=== PATIENT | male | born 2005 | race American Indian/Alaskan Native ===

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

== ENCOUNTER 2024-04-23 04:07 | Emergency (ER) | payer OTHER ==
[~2024-04-23] VITALS: Ht 162.6 cm; Wt 68.0 kg
[2024-04-23] MEDS ORDERED: Acetaminophen 325 MG TABLET PO ONE (04:35)
[2024-04-23 05:23] LABS: Source, Urine Clean Catch
[2024-04-23 05:31] LABS: Appearance, Urine Hazy (Clear); Bilirubin, Urine Neg (Neg); Blood, Urine Neg (Neg); Color, Urine Yellow (P-Yellow); Glucose Qualitative, Urine Neg (Neg); Ketones, Urine Neg (Neg); Leukocyte Esterase, Urine Neg (Neg); Nitrite, Urine Neg (Neg); Protein, Urine Neg (Neg); Urobilinogen, Urine NORM (Normal); pH, Urine 6.5 (5.0-8.0)
[2024-04-23 05:39] LABS: Red Blood Cells, Urine Not Seen /hpf (0-2); White Blood Cells, Urine Not Seen /hpf (0-5)
[2024-04-23 05:40] LABS: Amorphous Heavy (0-Heavy); Bacteria Rare /hpf; Squamous Epithelial Cells Rare /hpf (Few)
[2024-04-23] MEDS ORDERED: Ondansetron 4 MG SoluTab SL ONE (06:05)
[2024-04-23 06:09] LABS: Influenza A, PCR NEGATIVE (NEGATIVE); Influenza B, PCR NEGATIVE (NEGATIVE); Resp Syncytial Virus, PCR NEGATIVE (NEGATIVE); SARS-Cov-2 (COVID-19) PCR, MMC NEGATIVE (NEGATIVE)
[2024-04-23 06:30] VITALS: BP 15/75
[2024-04-23 07:02] LABS: Chlamydia Trachomatis Urine NOT DETECTED (NOT DETECT); Neisseria Gonorrhoea Urine NOT DETECTED (NOT DETECT)
[2024-04-23] MEDS ORDERED: HYDHCL25 PO (20:45)
== END 2024-04-23 06:35 | disposition home or self-care (01) ==
LOC: ER 04:07
PROVIDERS: Physician Assistant
DX: B34.9 Viral infection, unspecified (principal); Z87.891 Personal history of nicotine dependence
CPT/HCPCS: 0241U; 71046; 81001; 87491; 87591; 99285-25; A9270

== ENCOUNTER 2024-04-23 20:12 | Emergency (ER) | payer OTHER ==
[~2024-04-23] VITALS: Ht 185.4 cm; Wt 68.0 kg
[2024-04-23 20:38] VITALS: BP 123/74
[2024-04-23] MEDS ORDERED: HYDHCL25 PO (20:45)
== END 2024-04-23 20:46 | disposition home or self-care (01) ==
LOC: ER 20:12
DX: F41.9 Anxiety disorder, unspecified (principal); R07.89 Other chest pain; Z87.891 Personal history of nicotine dependence
CPT/HCPCS: 93005; 93010; 99283-25

== ENCOUNTER 2024-05-21 06:40 | Emergency (ER) | payer OTHER ==
[~2024-05-21] VITALS: Ht 175.3 cm; Wt 65.8 kg
[~2024-05-21 06:40] MED LIST changes: +HYDHCL25 PO
[2024-05-21 07:45] LABS: BASOPHILS ABSOLUTE AUTO 0.04 K/mm3 (0.00-0.23); BASOPHILS PERCENT AUTO 1 % (0-2); EOSINOPHILS ABSOLUTE AUTO 0.33 K/mm3 (0.00-0.68); EOSINOPHILS PERCENT AUTO 4 % (0-6); Hematocrit 45.1 % (37.0-53.0); Hemoglobin 15.4 g/dL (13.5-17.5); IMMATURE GRAN ABSOLUTE AUTO 0.02 K/mm3 (0.00-0.10); IMMATURE GRAN PERCENT AUTO 0 % (0-1); LYMPHOCYTES ABSOLUTE AUTO 2.92 K/mm3 (0.84-5.20); LYMPHOCYTES PERCENT AUTO 33 % (21-46); MONOCYTES ABSOLUTE AUTO 0.95 K/mm3 (0.16-1.47); MONOCYTES PERCENT AUTO 11 % (4-13); Mean Corpuscular HGB Conc 34.1 g/dL (31.5-36.5); Mean Corpuscular Volume 94 fL (80-100); Mean Platelet Volume 10.4 fL (9.1-12.4); NEUTROPHILS ABSOLUTE AUTO 4.56 K/mm3 (1.96-9.15); NEUTROPHILS PERCENT AUTO 52 % (41-73); Platelet Count 285 K/mm3 (150-400); RDW Coefficient Variation 12.2 % (11.7-14.2); RDW Standard Deviation 42.5 fL (35.1-46.3); Red Blood Cell Count 4.81 M/mm3 (4.30-5.90); White Blood Cell Count 8.82 K/mm3 (4.00-11.30)
[2024-05-21] MEDS ORDERED: Ondansetron HCl 2 MG / ML 2ML Vial IV ONE (07:45)
[2024-05-21] MEDS ORDERED: Mag Hydrox/AL Hydrox/Simeth 30 ML UDC PO ONE (07:45)
[2024-05-21] MEDS ORDERED: NS 1,000 ML IV SCH (07:45)
[2024-05-21] MEDS ORDERED: Famotidine 10 MG/ML 2ML Vial IV ONE (07:45)
[2024-05-21 08:04] LABS: Albumin/Globulin Ratio 1.2 (0.8-1.8); Bilirubin, Total 1.1 mg/dL (0.1-1.0); Bun/Creatinine Ratio 17.5 (12.0-20.0); Calcium, Blood 9.4 mg/dL (8.5-10.1); Creatinine, Blood 0.86 mg/dL (0.60-1.20); Globulin, Blood 3.3 g/dL (2.2-4.0); Potassium, Blood 3.8 mmol/L (3.5-5.5); Total Protein, Blood 7.3 g/dL (6.4-8.2)
[2024-05-21] MEDS ORDERED: ONDA4ODT MM (08:28)
[2024-05-21] MEDS ORDERED: FAMO20 PO (08:28)
[2024-05-21 08:55] VITALS: BP 130/78
== END 2024-05-21 08:55 | disposition home or self-care (01) ==
LOC: ER 06:40
PROVIDERS: Student in an Organized Health Care Education/Training Program
DX: R10.13 Epigastric pain (principal); F10.10 Alcohol abuse, uncomplicated; F17.200 Nicotine dependence, unspecified, uncomplicated; Z79.899 Other long term (current) drug therapy
CPT/HCPCS: 80053; 82272; 83690; 85025; 96374; 99284-25; A9270; J2405; J7030

== ENCOUNTER 2024-12-27 16:29 | Emergency (ER) | payer OTHER ==
[~2024-12-27] VITALS: Ht 175.3 cm; Wt 68.0 kg
[~2024-12-27 16:29] MED LIST changes: +FAMO20 PO; +ONDA4ODT MM
[2024-12-27 16:34] VITALS: BP 134/82
[2024-12-27 17:05] LABS: BASOPHILS ABSOLUTE AUTO 0.05 K/mm3 (0.00-0.23); BASOPHILS PERCENT AUTO 1 % (0-2); EOSINOPHILS ABSOLUTE AUTO 0.42 K/mm3 (0.00-0.68); EOSINOPHILS PERCENT AUTO 5 % (0-6); Hematocrit 47.6 % (37.0-53.0); Hemoglobin 16.6 g/dL (13.5-17.5); IMMATURE GRAN ABSOLUTE AUTO 0.02 K/mm3 (0.00-0.10); IMMATURE GRAN PERCENT AUTO 0 % (0-1); LYMPHOCYTES ABSOLUTE AUTO 2.94 K/mm3 (0.84-5.20); LYMPHOCYTES PERCENT AUTO 32 % (21-46); MONOCYTES ABSOLUTE AUTO 0.78 K/mm3 (0.16-1.47); MONOCYTES PERCENT AUTO 9 % (4-13); Mean Corpuscular HGB 31.5 pg (26.0-34.0); Mean Corpuscular HGB Conc 34.9 g/dL (31.5-36.5); Mean Corpuscular Volume 90 fL (80-100); Mean Platelet Volume 10.5 fL (9.1-12.4); NEUTROPHILS ABSOLUTE AUTO 4.93 K/mm3 (1.96-9.15); NEUTROPHILS PERCENT AUTO 54 % (41-73); Platelet Count 325 K/mm3 (150-400); RDW Coefficient Variation 12.6 % (11.7-14.2); RDW Standard Deviation 41.8 fL (35.1-46.3); Red Blood Cell Count 5.27 M/mm3 (4.30-5.90); White Blood Cell Count 9.14 K/mm3 (4.00-11.30)
[2024-12-27 17:30] LABS: Albumin, Blood 4.9 g/dL (3.4-5.0); Albumin/Globulin Ratio 1.4 (0.8-1.8); Bilirubin, Total 3.2 mg/dL (0.1-1.0); Bun/Creatinine Ratio 15.4 (12.0-20.0); Calcium, Blood 9.5 mg/dL (8.5-10.1); Creatinine, Blood 0.84 mg/dL (0.60-1.20); Globulin, Blood 3.6 g/dL (2.2-4.0); Potassium, Blood 3.7 mmol/L (3.5-5.5); Total Protein, Blood 8.5 g/dL (6.4-8.2)
[2024-12-27] MEDS ORDERED: Ketorolac Tromethamine 30mg Vial IV ONE (17:50)
== END 2024-12-27 18:15 | disposition home or self-care (01) ==
LOC: ER 16:29
PROVIDERS: Student in an Organized Health Care Education/Training Program
DX: S70.01XA Contusion of right hip, initial encounter (principal); S09.90XA Unspecified injury of head, initial encounter; F17.200 Nicotine dependence, unspecified, uncomplicated; Z79.899 Other long term (current) drug therapy; Z59.89 Other problems related to housing and economic circumstances; V89.2XXA Person injured in unspecified motor-vehicle accident, traffic, initial encounter
CPT/HCPCS: 71046; 74177; 80053; 85025; 86850; 86900; 86901; 93005; 93010; 99284-25; J1885; Q9967